=== PATIENT | female | born 1985 | race Caucasian/White ===

== ENCOUNTER → 2022-09-07 | Outpatient (CLI) | payer OTHER, SELFPAY ==
--- NOTE | 2022-09-07 10:45 | MRI_ITS ---
STUDY: MRI LEFT ANKLE WITHOUT CONTRAST REASON FOR EXAM: Female, 37 years old. LEFT peroneal tendon tear TECHNIQUE: Standardized fat and water weighted pulse sequences were obtained in all 3 orthogonal planes. COMPARISON: None. FINDINGS: Normal subcutis adipose space. Normal posterior tibialis tendon. Normal flexor digitorum longus tendon. Normal flexor hallucis longus tendon. Normal peroneus longus tendon. There is flattening and partial split tear of the peroneal brevis series 4 images and . Normal tibialis anterior tendon. Normal extensor hallucis longus tendon. Normal extensor digitorum longus tendons. Normal Achilles tendon and teno-osseous insertion. Normal plantar fascia. Normal plantar calcaneal tubercles. Normal intrinsic muscles of the rearfoot. Normal distal tibiofibular syndesmotic ligamentous complex. Normal lateral ligamentous complex. Normal subtalar ligaments and sinus tarsi. Normal deltoid ligamentous complexes. Normal plantar calcaneonavicular (spring) ligament. Normal tibiotalar articulation. Normal talar dome. There is os trigonum with mild spurring cystic change adjacent to the synchondrosis. There is joint effusion of the subtalar articulations. Normal talonavicular articulation. Normal calcaneocuboid articulation. Normal navicular-cuneiform articulations. MRI/Lower Ext Joint Only (Routine) IMPRESSION: Partial tear of the peroneal brevis. Os trigonum with mild edema and spurring. Electronically Signed: Reed Russell MD at 14:02 EDT ,
== END | disposition home or self-care (01) ==
LOC: MRI 10:08
PROVIDERS: PCP Internal Medicine; Visit Provider Podiatrist
DX: S86.312A Strain of muscle(s) and tendon(s) of peroneal muscle group at lower leg level, left leg, initial encounter (principal); Q68.8 Other specified congenital musculoskeletal deformities
CPT/HCPCS: 73721

== ENCOUNTER 2023-04-29 08:20 | Emergency (ER) | payer OTHER, SELFPAY ==
[2023-04-29 08:22] VITALS: BP 140/88; PULSE 78; RESP 16; TEMP 36.4; O2SAT 98; BMI 33.7
--- NOTE | 2023-04-29 08:33 | EX.ED.UPPERE ---
HPI History of Present Illness Chief Complaint: Upper Extremity Injury [facility] Medical History (Updated 04/29/23 @ 09:[address] Patrick Rudd DO) Bone fracture Hx of emotional problems PCOS (polycystic ovarian syndrome) Raynaud disease Tension headache, chronic Vision problem Home Medications NK 10/23/19 [History Last Taken Unknown] Allergy/AdvReac Type Severity Reaction Status Date / Time No Known Allergies Allergy Verified 04/29/23 08:21 Family History Mother Anxiety Psoriasis Diabetes Hypertension Brother Anxiety Grandfather Diabetes Hypertension Kidney disease Liver disease Grandmother Diabetes Hypertension Alzheimer's dementia Surgical History H/O foot surgery H/O lumpectomy H/O oral surgery H/O skin graft Social History (Updated 10/25/19 @ 16:[address] Samir Rodriguez MD) Smoking Status: Never smoker alcohol intake: current alcohol intake frequency: a few times a week substance use type: does not use what type of physical activity do you participate in: walking frequency: 1-2 times per week EXAM Physical Exam Const Vital Signs: 04/29/23 08:22 Temperature 97.6 F L Temperature Source Temporal Pulse Rate 78 Respiratory Rate 16 Blood Pressure 140/88 H Blood Pressure Mean 105 Pulse Ox 98 Oxygen Delivery Method Room Air MDM MDM MDM Narrative Medical decision making narrative: HISTORY OF PRESENT ILLNESS: 38-year-old female here with left shoulder pain. The patient states she thinks she may have dislocated her left shoulder. She notes this happened Saturday. She further states she had atraumatic left shoulder pain with lifting heavy object. She states she not use her muscles and her left arm fell down to her side violently. This caused left shoulder pain which has been constant and severe worse with movement over the last 3 days. She denies prior history of surgery to the left shoulder. REVIEW OF SYSTEMS: Pertinent positives: Left shoulder pain Pertinent negatives: Numbness, loss of sensation PHYSICAL EXAM: Nursing triage notes reviewed, Vital signs reviewed Constitutional: please see mdm Lungs: Clear to auscultation, No wheezing or rales. No increased work of breathing, no conversational dyspnea, no accessory muscle use, no nasal flaring. No respiratory distress noted Heart: Regular rate and rhythm, No murmurs, No rubs and No gallops, 2+ distal pulses (radial, femoral, posterior tibial) in all extremities Extremities: No edema, no obvious step-offs, deformities, no TTP over left scapula, no deformity or tenderness to clavicle no evidence of open fracture. Neuro: Intact 5/5 strength with ok sign (median), intact finger abduction (ulnar) intact wrist extension (radial n). Intact sensation in the radial, ulnar, and median nerve distributions. Skin: No rash or lesions noted MEDICAL DECISION MAKING: Chief Complaint: Left shoulder pain External records reviewed: No recent advanced imaging of the involved extremity Factors affecting care: None Social determinants of health: None History obtained from others: none Consults: none ALL IMAGES HAVE BEEN PERSONALLY REVIEWED AND INTERPRETED BY MYSELF. MDM Narrative: The patient was hemodynamically stable, afebrile, nontoxic-appearing. Left upper extremity with no obvious deformity, no obvious step-offs, intact but painful range of motion left upper extremity. Left upper extremity is neurovascularly intact I considered the following differential diagnosis: Shoulder strain, AC joint separation, shoulder fracture, shoulder dislocation I obtained an x-ray of the left shoulder which showed evidence of a mild AC joint separation. We will provide the patient with sling and Ortho follow-up. Total critical care time today provided was at least 0 minutes. This excludes seperately billable procedures. There was a high probability of clinically significant/life threatening deterioration in the patient's condition which required my urgent intervention. Shared decision making: I will have a discussion with the patient and or visitors regarding risk/benefits of further testing or admission. They will be made aware of of the risk/benefits inherent in this decision they will be given the opportunity to voice understanding. Radiography Chest X-Ray - ED: Read by ED Physician Diagnostic Testing: I personally reviewed the patient's shoulder x-ray. It showed no evidence of fracture or dislocation by my read. Treatment and Re-Evaluation Narrative: Patient remained neurovascular intact in left upper extremity is appropriate for discharge home. Discharge Plan Triage Chief Complaint: Upper Extremity Injury ED Provider: Patrick Rudd Dx/Rx/DC Orders Clinical Impression: Sprain of acromioclavicular joint Instructions: ED Sprain AC Joint Prescriptions: No Action NK Primary Care Provider: Sabrina Carnes Referrals: Spittle,Roshan, DO [Med Staff - Active Staff] - Activity Restrictions/Additional Instructions: Thank you for trusting us with your care today! Please take Tylenol (2 pills, 650 mg), ibuprofen (2 pills, 400 mg) every 6 hours as needed for pain and fever control. Please return to the emergency department if your symptoms change or worsen. Specifically if you develop numbness, tingling, loss of sensation or loss of use of your left upper extremity. Please follow with your primary care physician for further outpatient evaluation and management. Disposition Disposition: Home, Self Care
--- NOTE | 2023-04-29 08:49 | RAD_ITS ---
INDICATION: left shoulder pain EXAMINATION/TECHNIQUE: X-RAY - LEFT XR Shoulder Min 2 Views 5 VIEWS COMPARISON: FINDINGS: SOFT TISSUES: No soft tissue swelling or gas. No radiopaque foreign body. BONES/JOINTS: No acute fracture or subluxation.. Normal alignment. There is widening of the left acromioclavicular joint space. The coracoclavicular distance is within normal limits. No sclerotic or destructive changes observed. RAD/Shoulder min 2 Views IMPRESSION: Widening of the acromioclavicular joint space concerning for underlying ligamentous injury. Electronically Signed: Sharri Ambrocio MD at 9:10 EDT ,
[2023-04-29] MEDS: Ibuprofen 200 MG Tablet 400 MG PO (08:55)
== END 2023-04-29 10:03 | disposition home or self-care (01) ==
PROVIDERS: Emergency Provider Emergency Medicine; PCP Internal Medicine; Visit Provider Emergency Medicine
DX: S43.52XA Sprain of left acromioclavicular joint, initial encounter (principal); X58.XXXA Exposure to other specified factors, initial encounter
CPT/HCPCS: 73030; 99283